=== PATIENT | female | born 1965 | race Caucasian/White ===

== ENCOUNTER 2019-05-01 02:57 | Emergency (ER) | payer MEDICAID ==
[~2019-05-01] VITALS: Ht 170.2 cm; Wt 106.6 kg
[2019-05-01 03:02] VITALS: BP 150/81
[2019-05-01 03:53] LABS: Urine Bacteria FEW /hpf (None Seen); Urine Blood 2+ /uL (Negative); Urine Specific Gravity 1.011 (1.001-1.035); Urine WBC 459 /hpf (0 - 5); Urine WBC Clumps PRESENT /hpf (None Seen)
[2019-05-01] MEDS ORDERED: cefTRIAXone SOD 1,000 MG VL IM ONE (04:30)
[2019-05-01] MEDS ORDERED: PHENAZOPYRIDINE HCL 100 MG TAB PO ONE (04:30)
== END 2019-05-01 05:00 | disposition home or self-care (01) ==
LOC: ER 03:07
DX: N39.0 Urinary tract infection, site not specified (principal)
CPT/HCPCS: 81001; 96372; 99283; J0696